=== PATIENT | male | born 1995 | race African-American/Black ===

== ENCOUNTER 2018-06-20 19:04 | Emergency (ER) | payer MEDICAID ==
[~2018-06-20] VITALS: Ht 182.9 cm; Wt 99.6 kg
[2018-06-20 19:41] VITALS: BP 131/81
== END 2018-06-20 20:14 | disposition left against medical advice (07) ==
LOC: ER 19:04
DX: R11.10 Vomiting, unspecified (principal); R19.7 Diarrhea, unspecified; Z53.21 Procedure and treatment not carried out due to patient leaving prior to being seen by health care provider